=== PATIENT | male | born 1955 ===

== ENCOUNTER 2018-07-24 18:11 | Outpatient (CLI) | payer OTHER ==
--- NOTE | 2018-07-24 18:33 | RAD ---
EXAM: 3 views of the right shoulder HISTORY: Shoulder pain for 2 months COMPARISON: None FINDINGS: There is no evidence of acute fracture or dislocation. No degenerative changes are present. No soft tissue swelling is seen. The visualized thorax is unremarkable. IMPRESSION: No evidence of acute osseous abnormality.
== END 2018-07-24 18:12 | disposition home or self-care (01) ==
LOC: SCSRAD 18:11
PROVIDERS: ATTEND Family Medicine
DX: M25.511 Pain in right shoulder (principal)